=== PATIENT | male | born 1950 | race Caucasian/White ===

== ENCOUNTER 2018-09-10 15:52 | Outpatient (CLI) | payer OTHER, MEDICARE ==
--- NOTE | 2018-09-11 10:13 | MRI ---
MRI LUMBAR SPINE WITH AND WITHOUT CONTRAST: 09/10/2018 HISTORY: Bilateral footdrop. Prior back surgery. COMPARISON: None. TECHNIQUE: Multiplanar, multisequence MR imaging of the lumbar spine is obtained with and without contrast. FINDINGS: Sagittal STIR imaging demonstrates mild edematous change in the region of the posterior paraspinal mu sculature, just to the right of midline, at the S1-S2 level. There is edematous endplate change louis g the posterior margin of the L3-L4 disk space. There is no significant anterolisthesis or retrolisthesis within the lumbar spine. On the basis of 5 lumbar type vertebral bodies, the conus medullaris terminates at approximately T12- L1. T12-L1: Mild bilateral facet hypertrophy, disk space narrowing, and anterior osteophyte formation. No significant central canal or neural foraminal stenosis. L1-L2: Mild disk space narrowing and anterior osteophyte formation. Small disk bulge and mild bilat eral facet hypertrophy. There is a small foraminal disk herniation on the left with mild left neural foraminal stenosis. No significant central canal or right neural foraminal stenosis. L2-L3: Disk space narrowing, anterior osteophyte formation, and mild disk bulge. Mild bilateral fac et hypertrophy. No significant central canal or neural foraminal stenosis. L3-L4: Prominent bilateral facet hypertrophy, left greater than right. Disk space narrowing, disk d esiccation, and mild disk bulge. Moderate-severe central canal stenosis. Moderate left neural andre inal stenosis. No significant right neural foraminal stenosis. L4-L5: Prominent bilateral facet hypertrophy. Mild bilateral neural foraminal stenosis. Mild centr al canal stenosis. L5-S1: Disk space narrowing, disk desiccation, anterior osteophyte formation, and disk bulge. Bilat eral facet hypertrophy, left greater than right. Mild left neural foraminal stenosis. No significan t central canal stenosis. Postoperative laminectomy changes noted at L4-L5. The post contrast imaging demonstrates no abnormal enhancement involving the nerve roots of the cauda equina. There is enhancement involving the posterior aspect of the inferior endplate of L3, the sup erior endplate of L4, and the above described area of edematous degenerative endplate change. No MR evidence of diskitis or osteomyelitis. Imaged retroperitoneal structures are grossly unremarkable. IMPRESSION: Postoperative and degenerative changes noted within the lumbar spine. Findings include moderate-cathleen re central canal stenosis at L3-L4. POS: [facility]
== END 2018-09-10 15:53 | disposition home or self-care (01) ==
LOC: SCSMRI 15:52
PROVIDERS: ATTEND Orthopaedic Surgery Orthopaedic Surgery of the Spine
DX: M47.26 Other spondylosis with radiculopathy, lumbar region (principal); M48.061 Spinal stenosis, lumbar region without neurogenic claudication; Z98.890 Other specified postprocedural states
CPT/HCPCS: 72158; 82565

== ENCOUNTER 2019-10-26 11:21 | Outpatient (CLI) | payer MEDICARE ==
--- NOTE | 2019-10-26 14:30 | MRI ---
RIGHT SHOULDER MRI WITHOUT IV CONTRAST: Date: 10/26/2019 HISTORY: Acute pain right shoulder. FINDINGS: Complete extensively retracted tears of the supraspinatus, conjoined, and infraspinatus tendons with retraction back to a level between the humeral dome and the glenoid, with some associated delaminatio n bilaterally. Very irregular appearing dislocated biceps tendon with some associated interstitial te aring, as well as extensive interstitial tearing of the subscapularis tendon. There is some muscle vo lume loss involving the supraspinatus and infraspinatus tendon. The supraspinatus and infraspinatus m uscles, as well as some edema changes, particularly within the superior portion of the infraspinatus muscle in part possibly representing some associated denervation versus very extensive longstanding t earing. Severe AC joint arthrosis changes are noted with extensive subchondral cystic changes and und ersurface spurring of the distal clavicle, as well as some undersurface spurring of the lateral acrom ion. Greater tuberosity subchondral cystic change. The teres minor tendon appears intact. IMPRESSION: 1. Very extensive longstanding rotator cuff tears. 2. Abnormal appearing superior labrum, evidence for SLAP tear. 3. AC joint arthrosis with undersurface spurring of the lateral acromion and lateral clavicle. 4. Supraspinatus and infraspinatus muscle volume loss with some minimal edematous changes, particula rly of the infraspinatus muscle. 5. Other findings as above. POS: [facility]
== END 2019-10-26 11:22 | disposition home or self-care (01) ==
LOC: SCSMRI 11:21
PROVIDERS: ATTEND Internal Medicine
DX: M25.511 Pain in right shoulder (principal)